=== PATIENT | female | born 1995 | race African-American/Black ===

== ENCOUNTER 2024-01-26 21:39 | Emergency (ER) | payer OTHER ==
[~2024-01-26] VITALS: Ht 167 cm; Wt 64.1 kg
[2024-01-26 21:58] VITALS: BP 132/82; PULSE 94; RESP 20; TEMP 98.1
[2024-01-26] MEDS: IBUPROFEN 600 MG TABLET PO ONE (23:24)
[2024-01-26] MEDS: HYDROCODONE/ACETAMINOPHEN 5-325 MG TABLET PO ONE (23:24)
[2024-01-26] MEDS: LIDOCAINE 1% 10 ML VIAL SQ ONE (23:25)
[2024-01-27] MEDS ORDERED: DOXY-354 PO (01:04)
[2024-01-27] MEDS ORDERED: CEPH-558 PO (01:04)
[2024-01-27] MEDS ORDERED: IBUP-1554 PO (01:04)
[2024-01-27] MEDS: AZITHROMYCIN 500 MG TABLET PO ONE (01:24)
[2024-01-27] MEDS: LIDOCAINE/PF 1% 2 ML VIAL IM ONE (01:24)
[2024-01-27] MEDS: CefTRIAXone SODIUM 1 GM/VIAL IM ONE (01:24)
== END 2024-01-27 01:49 | disposition home or self-care (01) ==
LOC: EMS 21:39
DX: N76.2 Acute vulvitis (principal); F17.210 Nicotine dependence, cigarettes, uncomplicated; Z88.0 Allergy status to penicillin
CPT/HCPCS: 99284; 10160; 96372; J3490 ×2; J0456; J0696